=== PATIENT | female | born 1955 | race Two or more races ===

== ENCOUNTER → 2023-08-18 14:40 | Outpatient (REF) | payer BC, SELFPAY | LOC: WDC 14:40 | PROVIDERS: ATTENDING PHYSICIAN Radiology Radiation Oncology; FAMILY PHYSICIAN Family Medicine | DX: Z12.31 Encounter for screening mammogram for malignant neoplasm of breast (principal); Z85.3 Personal history of malignant neoplasm of breast | CPT/HCPCS: 77063; 77067 ==

== ENCOUNTER → 2023-08-24 07:34 | Outpatient (REF) | payer BC, SELFPAY | LOC: EMG 07:34 | PROVIDERS: ATTENDING PHYSICIAN Family Medicine | DX: R20.0 Anesthesia of skin (principal) | CPT/HCPCS: 95886; 95909 ==

== ENCOUNTER → 2023-09-04 09:02 | Outpatient (REF) | payer BC, SELFPAY | LOC: RAD 09:02 | PROVIDERS: ATTENDING PHYSICIAN Family Medicine | DX: R20.0 Anesthesia of skin (principal) | CPT/HCPCS: 70496; 70498; 72050; Q9967 ==

== ENCOUNTER 2024-01-16 14:29 | Outpatient (RCR) | payer BC, SELFPAY | END 2024-01-16 23:59 | disposition home or self-care (01) | LOC: RPT 14:29 | PROVIDERS: ATTENDING PHYSICIAN Internal Medicine Hematology & Oncology; FAMILY PHYSICIAN Family Medicine | DX: C50.212 Malignant neoplasm of upper-inner quadrant of left female breast (principal); R53.0 Neoplastic (malignant) related fatigue; Z73.6 Limitation of activities due to disability | CPT/HCPCS: 97110; 97112; 97162; 97530; 97535 ==

== ENCOUNTER → 2024-06-18 11:51 | Outpatient (REF) | payer BC, SELFPAY | LOC: RAD 11:51 | PROVIDERS: ATTENDING PHYSICIAN Nurse Practitioner Adult Health; FAMILY PHYSICIAN Family Medicine | DX: C50.212 Malignant neoplasm of upper-inner quadrant of left female breast (principal); Z79.811 Long term (current) use of aromatase inhibitors | CPT/HCPCS: 73030; 73502 ==

== ENCOUNTER → 2024-08-23 10:59 | Outpatient (REF) | payer MEDICARE, SELFPAY | LOC: WDC 10:59 | PROVIDERS: ATTENDING PHYSICIAN Nurse Practitioner Adult Health; FAMILY PHYSICIAN Family Medicine | DX: Z12.31 Encounter for screening mammogram for malignant neoplasm of breast (principal); C50.212 Malignant neoplasm of upper-inner quadrant of left female breast | CPT/HCPCS: 77063; 77067 ==